=== PATIENT | female | born 1985 | race Caucasian/White ===

== ENCOUNTER 2023-03-07 07:41 | Day surgery (SDC) | payer OTHER ==
[~2023-03-07] VITALS: Ht 175.3 cm; Wt 76.0 kg
[2023-03-07] VITALS (7 sets, daily range): BP systolic 93–111; BP diastolic 59–73
[~2023-03-07 07:41] MED LIST: ERGO50000 PO
--- NOTE | 2023-03-07 13:25 | NUR ---
PT C/O L GROIN PAIN UPON STANDING. PT MEDICATED WITH 650MG TYLENOL. PT GETS DRESSED. DRESSING TO L GROIN IS CLEAN,DRY AND INTACT. IV REMOVED, CATHETER INTACT. PT AND SPOUSE VERBALIZE D/C INSTRUCTIONS. PT WHEELED OUT BY SPOUSE.
== END 2023-03-07 15:13 | disposition home or self-care (01) ==
LOC: MHTC 07:41
DX: I87.2 Venous insufficiency (chronic) (peripheral) (principal); I83.813 Varicose veins of bilateral lower extremities with pain; I86.3 Vulval varices; N94.10 Unspecified dyspareunia; N94.89 Other specified conditions associated with female genital organs and menstrual cycle; Z88.2 Allergy status to sulfonamides; Z79.899 Other long term (current) drug therapy
CPT/HCPCS: 37238; 37239; 37241; 37252; 75820; 75825; 76937; 84703; 99152; 99153; A9270; C1725; C1753; C1769; C1887; C1894; J1644; J1885; J2250; J3010; J7030; Q9967

== ENCOUNTER → 2023-09-03 | Outpatient (CLI) | payer OTHER | LOC: PLD 08:21 → LAB SHORT 08:21 | DX: D22.4 Melanocytic nevi of scalp and neck (principal) | CPT/HCPCS: 88305; 88341; 88342 ==